=== PATIENT | female | born 1970 | race Two or more races ===

== ENCOUNTER 2021-05-13 07:30 | Day surgery (SDC) | payer OTHER ==
[2021-05-13] MEDS ORDERED: NEURONTIN300 MG PO (16:08)
[2021-05-13] MEDS ORDERED: ULTRAM50 MG PO (16:08)
[2021-05-13] MEDS ORDERED: DERMOPLAST PAIN78 GM TOP (16:09)
== END 2021-05-13 18:45 | disposition home or self-care (01) ==
LOC: CIR.AMB 07:30
PROVIDERS: ATTEND Surgery
DX: N90.1 Moderate vulvar dysplasia (principal)